=== PATIENT | male | born 1985 | race African-American/Black ===

== ENCOUNTER 2017-09-24 20:59 | Emergency (ER) | payer SELFPAY ==
[~2017-09-24] VITALS: Ht 175.3 cm; Wt 75.0 kg
[2017-09-24 22:32] VITALS: BP 118/70
== END 2017-09-24 23:15 | disposition left against medical advice (07) ==
LOC: ER 21:58
DX: M79.601 Pain in right arm (principal); Z53.21 Procedure and treatment not carried out due to patient leaving prior to being seen by health care provider